=== PATIENT | female | born 1980 | race Caucasian/White ===

== ENCOUNTER 2019-05-07 06:53 | Emergency (ER) | payer MEDICAID, OTHER ==
[~2019-05-07] VITALS: Ht 162.6 cm; Wt 95.3 kg
[2019-05-07 07:26] VITALS: BP 132/81
== END 2019-05-07 10:25 | disposition left against medical advice (07) ==
LOC: ER 06:53
DX: T74.21XA Adult sexual abuse, confirmed, initial encounter (principal); M54.9 Dorsalgia, unspecified; R10.2 Pelvic and perineal pain; R10.30 Lower abdominal pain, unspecified